=== PATIENT | female | born 1995 | race Caucasian/White ===

== ENCOUNTER 2017-02-25 03:51 | Emergency (ER) | payer SELFPAY ==
--- NOTE | 2017-02-25 05:04 | ER Document Report ---
ED GI/ - General Chief Complaint: Abdominal Pain Stated Complaint: ABDOMINAL PAIN Time Seen by Provider: 02/25/17 04:08 Notes: Patient is a 21-year-old female that comes emergency department for chief complaint of upper abdominal pain and nausea. She states that she had sharp pain prior to arrival, symptoms lasted about 20 minutes, symptoms resolved. She has not had any symptoms since then. She denies any current symptoms. 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 LMP within the past month. TRAVEL OUTSIDE OF THE [place] IN LAST 30 DAYS: No - Related Data Allergies/Adverse Reactions: Sulfa (Sulfonamide Antibiotics) Allergy (Mild, Verified 02/25/17 03:57) Past Medical History - General Information source: Patient - Social History Smoking Status: Never Smoker Chew tobacco use (# tins/day): No Drug Abuse: None Lives with: Family Family History: Reviewed & Not Pertinent Patient has suicidal ideation: No Patient has homicidal ideation: No - Medical History Medical History: Negative Renal/ Medical History: Denies: Hx Peritoneal Dialysis Surgical Hx: Negative - Immunizations Hx Diphtheria, Pertussis, Tetanus Vaccination: Yes Review of Systems - Review of Systems Constitutional: No symptoms reported EENT: No symptoms reported Cardiovascular: No symptoms reported Respiratory: No symptoms reported Gastrointestinal: See HPI Genitourinary: No symptoms reported Female Genitourinary: No symptoms reported Musculoskeletal: No symptoms reported Skin: No symptoms reported Hematologic/Lymphatic: No symptoms reported Neurological/Psychological: No symptoms reported Physical Exam - Vital signs Vitals: Temp Pulse Resp BP Pulse Ox 97.7 F 77 18 106/71 100 02/25/17 04:01 02/25/17 04:01 02/25/17 04:01 02/25/17 04:01 02/25/17 04:01 Interpretation: Normal - General General appearance: Appears well, Alert - HEENT Head: Normocephalic, Atraumatic Eyes: Normal Pupils: PERRL - Respiratory Respiratory status: No respiratory distress Chest status: Nontender Breath sounds: Normal Chest palpation: Normal - Cardiovascular Rhythm: Regular Heart sounds: Normal auscultation Murmur: No - Abdominal Inspection: Normal Distension: No distension Bowel sounds: Normal Tenderness: Nontender. No: Tender, Jamison's sign, Guarding Organomegaly: No organomegaly - Back Back: Normal, Nontender - Extremities General upper extremity: Normal inspection, Nontender, Normal color, Normal ROM , Normal temperature General lower extremity: Normal inspection, Nontender, Normal color, Normal ROM , Normal temperature, Normal weight bearing. No: Liang's sign - Neurological Neuro grossly intact: Yes Cognition: Normal Orientation: AAOx4 Azalea Coma Scale Eye Opening: Spontaneous Worthing Coma Scale Verbal: Oriented Azalea Coma Scale Motor: Obeys Commands Azalea Coma Scale Total: 15 Speech: Normal Motor strength normal: LUE, RUE, LLE, RLE Sensory: Normal - Psychological Associated symptoms: Normal affect, Normal mood - Skin Skin Temperature: Warm Skin Moisture: Dry Skin Color: Normal Course - Re-evaluation Re-evalutation: I saw patient with the same presentation 1 month ago. Labs were performed at that time although after discussion ultrasound was not performed. Patient does have a family history of gallbladder disease. After discussion patient requests that an ultrasound be performed, declines workup otherwise. Soft benign abdomen. No evidence of acute abdomen. Ultrasound showing gallstones without pericholecystic fluid, wall thickening, or dilation of ducts. Patient again asymptomatic on reevaluation. Provided with copies of her ultrasound, referred to surgery, after discussion gave Toradol but explained if she develops concerning worsening symptoms she needs to return the emergency department. Patient states satisfaction and agreement. - Vital Signs Vital signs: Temp Pulse Resp BP Pulse Ox 98.5 F 59 L 16 108/68 100 02/25/17 06:26 02/25/17 06:26 02/25/17 06:26 02/25/17 06:26 02/25/17 06:26 Discharge - Discharge Clinical Impression: Upper abdominal pain Cholelithiasis Qualifiers: Cholelithiasis location: gallbladder Cholecystitis presence: without cholecystitis Biliary obstruction: without biliary obstruction Qualified Code(s) : K80.20 - Calculus of gallbladder without cholecystitis without obstruction Condition: Stable Disposition: HOME, SELF-CARE Additional Instructions: Your ultrasound does show gallstone. Your gallbladder is likely the source of your pain both this time and last time. Avoid fatty foods, follow-up closely with the surgical clinic referral for additional management, take Toradol if needed however if symptoms worsen, you begin to vomit, you have a fever, or any other concerning symptoms develop return to the emergency department. Prescriptions: Ketorolac Tromethamine [Toradol 10 mg Tablet] 10 mg PO Q8HP PRN #24 tablet PRN Reason: Referrals: [facility] [Provider Group] - Follow up as needed
--- NOTE | 2017-02-25 06:20 | RADIOLOGY REPORT (SQ) ---
EXAM DESCRIPTION: U/S ABDOMEN LIMITED W/O DOP CLINICAL HISTORY: 21 years, Female, RUQ/epigastric pain, nausea COMPARISON: None. LIMITATIONS: None. FINDINGS: Pancreas, liver, vasculature, 0.5 cm gallstone, negative pericholecystic fluid, negative sonographic Jamison's test, no intra or extrahepatic ductal dilation, 0.4 cm diameter common duct, and 10.8 cm right kidney appear otherwise of normal size, shape, echotexture, and vascularity. No significant free fluid. IMPRESSION: No acute findings. Cholelithiasis. 2011 [employer]- All Rights Reserved
[2017-02-25 06:28] VITALS: BP 108/68
== END 2017-02-25 06:35 | disposition home or self-care (01) ==
LOC: ER 03:51
DX: K80.20 Calculus of gallbladder without cholecystitis without obstruction (principal); R10.10 Upper abdominal pain, unspecified; R11.0 Nausea
CPT/HCPCS: 76705; 99284

== ENCOUNTER 2018-07-16 08:30 | Emergency (ER) | payer OTHER ==
[2018-07-16] MEDS ORDERED: ONDANSETRON 4 MG TAB.RAPDIS PO ONE (09:50)
[2018-07-16 10:14] LABS: APPEARANCE,URINE CLOUDY; BILIRUBIN,URINE NEGATIVE (NEGATIVE); COLOR,URINE YELLOW; GLUCOSE, URINE NEGATIVE (NEGATIVE); KETONES,URINE 80 mg/dL (NEGATIVE); LEUKOCYTE ESTERASE,URINE TRACE (NEGATIVE); NITRITE,URINE NEGATIVE (NEGATIVE); PROTEIN,URINE NEGATIVE (NEGATIVE); URINE SPECIFIC GRAVITY 1.025; UROBILINOGEN,URINE NEGATIVE mg/dL (<2.0)
--- NOTE | 2018-07-16 10:47 | ER Document Report ---
ED General - General Chief Complaint: Nausea Stated Complaint: NAUSEA Time Seen by Provider: 07/16/18 09:30 Mode of Arrival: Ambulatory Information source: Patient Notes: Patient presents emergency department with complaints of abdominal pain with nausea for 3 days. Also complains her head has been hurting. She reports she vomited once yesterday denies fever diarrhea. Denies urinary symptoms. Denies vaginal discharge. Also reports she has a rash to her right shoulder twice this year. She applies eczema cream and it goes away. TRAVEL OUTSIDE OF THE [place] IN LAST 30 DAYS: No - HPI Onset: Other Onset/Duration: Persistent Pain Level: 1 Associated symptoms: Nausea, Vomiting Exacerbated by: Denies Relieved by: Denies Similar symptoms previously: No Recently seen / treated by doctor: No - Related Data Allergies/Adverse Reactions: Sulfa (Sulfonamide Antibiotics) Allergy (Mild, Verified 07/16/18 08:33) Past Medical History - General Information source: Patient Last Menstrual Period: 06/25/18 - Social History Smoking Status: Never Smoker Frequency of alcohol use: None Drug Abuse: None Family History: Reviewed & Not Pertinent Patient has suicidal ideation: No Patient has homicidal ideation: No Renal/ Medical History: Denies: Hx Peritoneal Dialysis Skin Medical History: Reports Hx Eczema Past Surgical History: Reports: Hx Cholecystectomy, Hx Orthopedic Surgery - Immunizations Hx Diphtheria, Pertussis, Tetanus Vaccination: Yes Review of Systems - Review of Systems Notes: Review HPI for review of systems., All other systems negative Physical Exam - Vital signs Vitals: Temp Pulse Resp BP Pulse Ox 98.1 F 69 17 114/73 100 07/16/18 08:48 07/16/18 08:48 07/16/18 08:48 07/16/18 08:48 07/16/18 08:48 - Notes Notes: PHYSICAL EXAMINATION: GENERAL: Well-appearing and in no acute distress HEAD: Atraumatic, normocephalic. EYES: Pupils equal round and reactive to light, extraocular movements intact, sclera anicteric, conjunctiva are normal. ENT: nares patent, oropharynx clear without exudates. Moist mucous membranes. NECK: Normal range of motion, supple without lymphadenopathy LUNGS: CTAB and equal. No wheezes rales or rhonchi. HEART: Regular rate and rhythm without murmurs ABDOMEN: Soft, no tenderness. No guarding, no rebound EXTREMITIES: Normal range of motion, no pitting edema. No cyanosis. NEUROLOGICAL: Cranial nerves grossly intact. Normal sensory/motor exams. PSYCH: Normal mood, normal affect. SKIN: Warm, Dry, normal turgor, no rashes or lesions noted Course - Re-evaluation Re-evalutation: 07/16/18 Labs unremarkable. Patient informed of labs provided with a prescription for antinausea medicine. Instructed to follow-up with a primary care provider for further needs and recheck. She verbalized understanding. Dictation of this chart was performed using voice recognition software; therefore, there may be some unintended grammatical errors. - Vital Signs Vital signs: Temp Pulse Resp BP Pulse Ox 97.9 F 59 L 18 115/75 100 07/16/18 11:46 07/16/18 11:46 07/16/18 11:46 07/16/18 11:46 07/16/18 11:46 - Laboratory Result Diagrams: 07/16/18 10:38 07/16/18 10:38 Laboratory results interpreted by me: 07/16/18 10:00 Urine Ketones 80 H Ur Leukocyte Esterase TRACE H Discharge - Discharge Clinical Impression: Nausea Condition: Stable Disposition: HOME, SELF-CARE Instructions: Antinausea Medication ([facility]), Program Manager Transportation, Family Physicians / Practices, Nausea or Vomiting, Nonspecific ([facility]) Additional Instructions: *You have been evaluated for nausea Your labs today were unremarkable *Take medication as prescribed for nausea *Follow up with a primary care provider within 5 days for recheck *Return to ED for worsening condition, changes, needs Prescriptions: Ondansetron [Zofran Odt 4 mg Tablet] 1 - 2 tab PO Q4H #10 tab.mel
[2018-07-16 10:56] LABS: ABSOLUTE EOSINOPHILS # (AUTO) 0.1 10^3/uL (0.0-0.6); ABSOLUTE LYMPHOCYTES (AUTO) 1.2 10^3/uL (0.5-4.7); ABSOLUTE MONOCYTES (AUTO) 0.3 10^3/uL (0.1-1.4); ABSOLUTE NEUT (AUTO) 2.5 10^3/uL (1.7-8.2); BASOPHILS % (AUTO) 0.4 % (0-2); EOSINOPHILS % (AUTO) 3.2 % (0-6); HEMATOCRIT 38.3 % (36.0-47.0); MEAN CORPUSCULAR HEMOGLOBIN 28.2 pg (27.0-33.4); MEAN CORPUSCULAR HGB CONC 33.8 g/dL (32.0-36.0); MEAN CORPUSCULAR VOLUME 83 fl (80-97); MONOCYTES % (AUTO) 6.4 % (3-13); PLATELET COUNT 254 10^3/uL (150-450); RED BLOOD COUNT 4.59 10^6/uL (3.72-5.28); RED CELL DISTRIBUTION WIDTH 13.3 % (11.5-14.0); TOTAL CELLS COUNTED % (AUTO) 100 %; WHITE BLOOD COUNT 4.1 10^3/uL (4.0-10.5)
[2018-07-16 11:20] LABS: ALANINE AMINOTRANSFERASE 21 U/L (9-52); ALBUMIN 3.9 g/dL (3.5-5.0); ALKALINE PHOSPHATASE 64 U/L (38-126); ANION GAP 9 (5-19); ASPARTATE AMINO TRANSFERASE 21 U/L (14-36); BILIRUBIN,DIRECT 0.1 mg/dL (0.0-0.4); BILIRUBIN,TOTAL 0.9 mg/dL (0.2-1.3); BLOOD UREA NITROGEN 10 mg/dL (7-20); CALCIUM 9.4 mg/dL (8.4-10.2); CARBON DIOXIDE 25 mmol/L (22-30); CHLORIDE 106 mmol/L (98-107); GLUCOSE 86 mg/dL (75-110); POTASSIUM 4.7 mmol/L (3.6-5.0); TOTAL PROTEIN 7.3 g/dL (6.3-8.2)
[2018-07-16 11:47] VITALS: BP 115/75
== END 2018-07-16 11:55 | disposition home or self-care (01) ==
LOC: ER 08:30
DX: R11.0 Nausea (principal); R10.9 Unspecified abdominal pain; Z90.49 Acquired absence of other specified parts of digestive tract; Z88.2 Allergy status to sulfonamides
CPT/HCPCS: 99283; 36415; 85025; 81025; 80053; 81001; S0119

== ENCOUNTER 2018-08-21 08:56 | Emergency (ER) | payer SELFPAY ==
[2018-08-21 09:16] VITALS: BP 128/75
[2018-08-21] MEDS ORDERED: PROMETHAZINE HCL 25 MG TABLET PO ONE (09:57)
[2018-08-21] MEDS ORDERED: FAMOTIDINE 20 MG TABLET PO ONE (09:58)
--- NOTE | 2018-08-21 10:13 | ER Document Report ---
ED General - General Chief Complaint: Nausea Stated Complaint: NAUSEA/WEAKNESS Time Seen by Provider: 08/21/18 09:57 Primary Care Provider: [facility] [Provider Group] - Follow up as needed Notes: Patient is a 22-year-old female presents to the mother chief complaint of nausea and feeling generally weak. Patient states she was driving in her car this morning when both her hands started shaking. Patient states this lasted about 1 minute. Patient states that at that time she also developed nausea and feeling hot all over. Patient states a similar episode happened in the past about 1 month ago in which she was seen in the emergency department for nausea she reports that her last menstrual period was July 31 and denies current . Patient states she has had a normal appetite and denies recent cough, cold, sore throat, runny nose or fevers. Patient states she does have occasional acid reflux but is not induced with certain foods. Patient is not on medications for her acid reflux. Patient states this morning she did have a little bit of a odor to her urine but denies other urinary symptoms such as burning, frequency, hesitancy. Patient denies any dizziness or headache. TRAVEL OUTSIDE OF THE [place] IN LAST 30 DAYS: No - Related Data Allergies/Adverse Reactions: Sulfa (Sulfonamide Antibiotics) Allergy (Mild, Verified 08/21/18 09:04) Past Medical History - General Information source: Patient - Social History Smoking Status: Never Smoker Chew tobacco use (# tins/day): No Frequency of alcohol use: Occasional Drug Abuse: None Lives with: Spouse/Significant other Family History: Reviewed & Not Pertinent Patient has suicidal ideation: No Patient has homicidal ideation: No - Past Medical History Cardiac Medical History: Reports: None Pulmonary Medical History: Reports: None EENT Medical History: Reports: None Neurological Medical History: Reports: None Endocrine Medical History: Reports: None Renal/ Medical History: Reports: None. Denies: Hx Peritoneal Dialysis Malignancy Medical History: Reports: None GI Medical History: Reports: None Musculoskeletal Medical History: Reports None Skin Medical History: Reports Hx Eczema Psychiatric Medical History: Reports: None Traumatic Medical History: Reports: None Infectious Medical History: Reports: None Past Surgical History: Reports: Hx Cholecystectomy, Hx Orthopedic Surgery - Immunizations Hx Diphtheria, Pertussis, Tetanus Vaccination: Yes Review of Systems - Review of Systems Constitutional: See HPI EENT: No symptoms reported Cardiovascular: No symptoms reported Respiratory: No symptoms reported Gastrointestinal: See HPI Genitourinary: See HPI Female Genitourinary: No symptoms reported Musculoskeletal: No symptoms reported Skin: No symptoms reported Hematologic/Lymphatic: No symptoms reported Neurological/Psychological: No symptoms reported Physical Exam - Vital signs Vitals: Temp Pulse Resp BP Pulse Ox 98.7 F 67 18 128/75 H 97 08/21/18 09:15 08/21/18 09:15 08/21/18 09:15 08/21/18 09:15 08/21/18 09:15 Interpretation: Normal - Notes Notes: GENERAL: Well-appearing, well-nourished and in no acute distress. HEAD: Atraumatic, normocephalic. EYES: Pupils equal round and reactive to light, extraocular movements intact, sclera anicteric, conjunctiva are normal. ENT: TMs normal, nares patent, oropharynx clear without exudates. Moist mucous membranes. NECK: Normal range of motion, supple without lymphadenopathy or JVD. LUNGS: Breath sounds clear to auscultation bilaterally and equal. No wheezes rales or rhonchi. HEART: Regular rate and rhythm without murmurs, rubs or gallops. ABDOMEN: Soft, nontender, normoactive bowel sounds. No guarding, no rebound. No masses appreciated. BACK: No cervical, thoracic, lumbar midline tenderness. No saddle anesthesia, normal distal neurovascular exam. GENITOURINARY: Deferred. EXTREMITIES: Normal range of motion, no pitting or edema. No clubbing or cyanosis. NEUROLOGICAL: Cranial nerves II through XII grossly intact. Normal speech, normal gait. PSYCH: Normal mood, normal affect. SKIN: Warm, Dry, normal turgor, no rashes or lesions noted. Course - Re-evaluation Re-evalutation: 08/21/18 10:12 I will obtain a urinalysis, urine and give the patient Pepcid for possible acid reflux that is not controlled and anti-nausea medication. She is sitting upright in chair in no acute distress and is nontoxic-appearing. 08/21/18 Plan reevaluation patient is sitting upright in chair with significant other at the bedside. Patient states that her nausea has slightly improved. Patient is in no acute distress. Patient did have a trace amount of leuks in her urine and at this time I do not believe she has a urinary tract infection. I informed patient to increase fluids prescribed Pepcid to take as needed for the acid reflux that she reports having intermittently. Patient states that sometimes she feels like her sugar is low. Patient denies a history of diagnosed hypoglycemia or hyperglycemia. I did inform patient eat small frequent meals throughout the day to help with this. I did refer the patient to the [facility] as she does not have health insurance. Place patient on strict report return precautions. - Vital Signs Vital signs: Temp Pulse Resp BP Pulse Ox 98.7 F 67 18 128/75 H 97 08/21/18 09:15 08/21/18 09:15 08/21/18 09:15 08/21/18 09:15 08/21/18 09:15 - Laboratory Laboratory results interpreted by me: 08/21/18 10:10 Ur Leukocyte Esterase TRACE H Discharge - Discharge Clinical Impression: Nausea, Weakness Condition: Stable Disposition: HOME, SELF-CARE Additional Instructions: Today you were seen in the emergency department for nausea and generalized weakness. We did obtain a urine specimen which was negative for and urinary tract infection. Continue to take your anti-nausea medicine at home as needed. Prescribe you Pepcid, this is an antacid to take for your reflux. This may help with your nausea. Please avoid ibuprofen, aspirin, Aleve or any other NSAIDs as this may upset your stomach caused the nausea to worsen. Please follow-up with the [facility] to establish primary care. Please return to the emergency department for worsening of symptoms to include chest pain, shortness of breath, dizziness, passing out or any other concerning signs or symptoms. Eat small frequent meals throughout the day. Nausea or Vomiting, Nonspecific Vomiting (or nausea without vomiting) can be caused by many different problems. Of course, it can mean that something's wrong with the stomach, such as "stomach flu," ulcers, or inflammation. But it can also be a symptom of a problem that has nothing to do with the stomach or intestines. Vomiting is common with severe headaches, earaches, and tonsillitis. We see it with pneumonia or heart attacks. Drugs can cause nausea. Many abdominal problems cause vomiting; for example, gallstones, kidney stones, pancreatitis, and intestinal obstruction (blocked bowels). In most cases, curing the vomiting depends on fixing the problem that c aused it. For temporary relief, we may use an anti-nausea medicine. For home use, we can prescribe suppositories, chewable pills, pills that dissolve in the mouth, or liquid anti-nausea drugs. If the vomiting seems to be caused by a problem in the stomach, acid-suppressing drugs may be prescribed as well. It's important to avoid dehydration. Sip clear liquids. Take increasing amounts of fluid over the first 24 hours. Then start small amounts of bland foods (such as dry toast, applesauce, mashed potato). Avoid aspirin, tobacco, and alcohol. Gradually resume your usual diet. If the vomiting worsens, if the problem that's making you vomit worsens, or if there's evidence of bleeding in the stomach (such as black, tarry stool, bloody or black vomit, or lightheadedness), you should return immediately. Call your doctor if you aren't improved in 24 to 36 hours. Prescriptions: Famotidine [Pepcid 20 mg Tablet] 20 mg PO DAILY #30 tablet Forms: Return to Work Referrals: [facility] [Provider Group] - Follow up as needed
[2018-08-21 10:36] LABS: APPEARANCE,URINE CLOUDY; BILIRUBIN,URINE NEGATIVE (NEGATIVE); COLOR,URINE YELLOW; GLUCOSE, URINE NEGATIVE (NEGATIVE); KETONES,URINE NEGATIVE (NEGATIVE); LEUKOCYTE ESTERASE,URINE TRACE (NEGATIVE); NITRITE,URINE NEGATIVE (NEGATIVE); PROTEIN,URINE NEGATIVE (NEGATIVE); URINE SPECIFIC GRAVITY 1.029; UROBILINOGEN,URINE NEGATIVE mg/dL (<2.0)
== END 2018-08-21 11:22 | disposition home or self-care (01) ==
LOC: ER 08:56
DX: R11.0 Nausea (principal); R53.1 Weakness
CPT/HCPCS: 81001; 81025; 99283

== ENCOUNTER 2018-12-07 19:11 | Emergency (ER) | payer OTHER ==
[2018-12-07 19:34] VITALS: BP 124/81
[2018-12-07] MEDS ORDERED: GUAIFENESIN 600 MG TABLET.SA PO ONE (19:42)
[2018-12-07] MEDS ORDERED: LORATADINE 10 MG TABLET PO ONE (19:42)
[2018-12-07] MEDS ORDERED: IBUPROFEN 600 MG TABLET PO ONE (19:42)
[2018-12-07] MEDS ORDERED: PSEUDOEPHEDRINE HCL 30 MG TABLET PO ONE (19:42)
--- NOTE | 2018-12-07 19:42 | ER Document Report ---
ED Medical Screen (RME) - General Chief Complaint: Nausea Stated Complaint: NAUSEA/CONGESTION Time Seen by Provider: 12/07/18 19:34 Mode of Arrival: Ambulatory Information source: Patient Notes: For 23-year-old female presents to ED for complaint of nausea and facial sinus pain and pressure. She states she did have a runny nose but it decreased when she used a Mari pot but the pain and pressure increased. She states she is also been feeling tired and fatigued. She states she has been nausea but no vomiting. Last menstrual period was about 2 weeks ago denies any cough or congestion. Only medical history is gallbladder removal. She states she drinks maybe once a year does not smoke or use any kind of drugs. 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 TRAVEL OUTSIDE OF THE [place] IN LAST 30 DAYS: No - HPI Onset: Other - 4 days Onset/Duration: Gradual Quality of pain: Achy Severity: Mild Pain Level: 1 Associated Symptoms: Cough (nonproductive), Nausea, Rhinorrhea, Sinus pain/drainage Exacerbated by: Denies Relieved by: Denies Similar symptoms previously: Yes Recently seen / treated by doctor: No - Related Data Allergies/Adverse Reactions: Sulfa (Sulfonamide Antibiotics) Allergy (Mild, Verified 08/21/18 09:04) Past Medical History - General Information source: Patient - Social History Cigarette use (# per day): No Frequency of alcohol use: None Drug Abuse: None Lives with: Family Family history: Reviewed & Not Pertinent - Past Medical History Cardiac Medical History: Reports: None Pulmonary Medical History: Reports: None EENT Medical History: Reports: None Neurological Medical History: Reports: None Endocrine Medical History: Reports: None Renal/ Medical History: Reports: None Malignancy Medical History: Reports: None GI Medical History: Reports: None Musculoskeltal Medical History: Reports None Skin Medical History: Reports Hx Eczema Psychiatric Medical History: Reports: None Traumatic Medical History: Reports: None Infectious Medical History: Reports: None Past Surgical History: Reports: Hx Cholecystectomy, Hx Orthopedic Surgery - Immunizations Hx Diphtheria, Pertussis, Tetanus Vaccination: Yes Review of Systems - Review of Systems Constitutional: No symptoms reported EENT: Nose discharge, Sinus discharge Cardiovascular: No symptoms reported Respiratory: Cough Gastrointestinal: No symptoms reported Genitourinary: No symptoms reported Female Genitourinary: No symptoms reported Musculoskeletal: No symptoms reported Skin: No symptoms reported Hematologic/Lymphatic: No symptoms reported Neurological/Psychological: No symptoms reported -: Yes All other systems reviewed and negative Physical Exam - Vital signs Vitals: Temp Pulse Resp BP Pulse Ox 98.6 F 76 16 124/81 99 12/07/18 19:33 12/07/18 19:33 12/07/18 19:33 12/07/18 19:33 12/07/18 19:33 Interpretation: Normal - General General appearance: Appears well, Alert - HEENT Head: Normocephalic, Atraumatic Eyes: Normal Pupils: PERRL - Respiratory Respiratory status: No respiratory distress Chest status: Nontender Breath sounds: Normal Chest palpation: Normal - Cardiovascular Rhythm: Regular Heart sounds: Normal auscultation Murmur: No - Abdominal Inspection: Normal Distension: No distension Bowel sounds: Normal Tenderness: Nontender Organomegaly: No organomegaly - Back Back: Normal, Nontender - Extremities General upper extremity: Normal inspection, Nontender, Normal color, Normal ROM, Normal temperature General lower extremity: Normal inspection, Nontender, Normal color, Normal ROM, Normal temperature, Normal weight bearing. No: Liang's sign - Neurological Neuro grossly intact: Yes Cognition: Normal Orientation: AAOx4 [place] Coma Scale Eye Opening: Spontaneous [place] Coma Scale Verbal: Oriented [place] Coma Scale Motor: Obeys Commands [place] Coma Scale Total: 15 Speech: Normal Motor strength normal: LUE, RUE, LLE, RLE Sensory: Normal - Psychological Associated symptoms: Normal affect, Normal mood - Skin Skin Temperature: Warm Skin Moisture: Dry Skin Color: Normal Course - Re-evaluation Re-evalutation: 12/07/18 19:48 After performing a Medical Screening Examination, I estimate there is LOW risk for ACUTE CORONARY SYNDROME, RESPIRATORY FAILURE, SEPSIS OR MENINGITIS, thus I consider the discharge disposition reasonable. I have reevaluated this patient multiple times and no significant life threatening changes are noted. The patient and I have discussed the diagnosis and risks, and we agree with discharging home with close follow-up. We also discussed returning to the Emergency Department immediately if new or worsening symptoms occur. We have discussed the symptoms which are most concerning (e.g., changing or worsening pain, trouble swallowing or breathing, neck stiffness, fever) that necessitate immediate return. - Vital Signs Vital signs: Temp Pulse Resp BP Pulse Ox 98.6 F 76 16 124/81 99 12/07/18 19:33 12/07/18 19:33 12/07/18 19:33 12/07/18 19:33 12/07/18 19:33 Doctor's Discharge - Discharge Clinical Impression: URI (upper respiratory infection) Qualifiers: URI type: unspecified viral URI Qualified Code(s): J06.9 - Acute upper respiratory infection, unspecified Condition: Stable Disposition: HOME, SELF-CARE Instructions: Family Physicians / Practices Additional Instructions: UPPER RESPIRATORY ILLNESS: You have a viral infection of the respiratory passages -- a "cold." This common infection causes nasal congestion, drainage, and often sore throat and cough. It is highly contagious. The disease usually lasts about 10 to 14 days. There is no "cure" for the viral infection -- it must run its course. If there is a complication, such as bacterial infection in the nose, sinuses, middl e ear, or bronchial tubes, antibiotics may be required. The antibiotics won't affect the virus. Drink plenty of fluids. A humidifier may help. An expectorant medication or decongestant may make you more comfortable. Use acetaminophen or ibuprofen for fever or aches. See the doctor if fever persists over two days, if there is any significant worsening of your symptoms, or if you simply fail to improve as expected. DECONGESTANT MEDICATION: A decongestant medicine has been suggested. Often this medicine is combined in the same tablet with an antihistamine or expectorant. This type of medicine is helpful in treating a bad cold or sinus condition, as well as in treatment of the nasal congestion of hay fever. It is not of much benefit for lung infections. Decongestant medicines are related to stimulants. They can cause an increase in blood pressure and heart rate. Persons with heart disease and high blood pressure should not take decongestants without discussing this with the physician. If you develop palpitations, chest pain, headache, or tremors, stop the medicine and consult your physician. COUGH-SUPPRESSANT & EXPECTORANT MEDICATION: You are to use a cough medication as needed for relief of symptoms. This medicine is a combination of an expectorant (to make the mucous thinner and more easily "coughed up") and a cough suppressant (to reduce the frequency of coughing). The cough-suppressant medicine is related to narcotics. You may experience mild nausea and sleepiness. Some patients who are very sensitive to narcotics may have stomach pain from this medicine. Taking the medicine with food reduces these side effects. Do not drive or work with machinery until you know how this medicine affects you. The expectorant should have no side effects. Iodine-containing expectorants (such as organidin) should not be taken by persons with active thyroid disease unless approved by your doctor. Call the doctor if you develop shortness of breath, hives, rash, itching, lightheadedness, or severe nausea and vomiting. USE OF ACETAMINOPHEN (Tylenol): Acetaminophen may be taken for pain relief or fever control. It's much safer than aspirin, offering a wider range of "safe" dosages. It is safe during . Some brand names are Tylenol, Panadol, Datril, Anacin 3, Tempra, and Liquiprin. Acetaminophen can be repeated every four hours. The following are maximum recommended dosages: >89 pounds or adults 650 mg to 900 mg Acetaminophen can be repeated every four hours. Maximum dose not to exceed 4000 mg a day. You have been treated with Claritin 10 mg Sudafed 30 mg Mucinex 600 mg and ibuprofen 600 mg in the emergency room these are all wjri-rkq-rshyavv medications that she can get at the drugstore. You can also use Flonase which is filz-kby-[id number] use 2 sprays each nostril can also use saline spray. He can also use salt and soda gargles which will help with the drainage going on the back of your throat. This will also help to prevent a sore throat. Salt and soda solution 1 quart of water 1 tablespoon of salt 1 teaspoon of baking soda Mixed 3 ingredients together and boil for 1 minute Placed in a covered quart jar Use 1/2 ounce of cold solution to gargle 3 times a day FOLLOW-UP CARE: If you have been referred to a physician for follow-up care, call the physicians office for an appointment as you were instructed or within the next two days. If you experience worsening or a significant change in your symptoms, notify the physician immediately or return to the Emergency Department at any time for re-evaluation. Forms: Return to Work
== END 2018-12-07 20:00 | disposition home or self-care (01) ==
LOC: ER 19:11
DX: J06.9 Acute upper respiratory infection, unspecified (principal); B97.89 Other viral agents as the cause of diseases classified elsewhere; R11.0 Nausea; J34.89 Other specified disorders of nose and nasal sinuses; R53.83 Other fatigue; R05 Cough; Z88.2 Allergy status to sulfonamides; R09.89 Other specified symptoms and signs involving the circulatory and respiratory systems
CPT/HCPCS: 99283

== ENCOUNTER → 2019-05-26 | Outpatient (CLI) | payer OTHER ==
[2019-05-26 15:45] LABS: ABSOLUTE EOSINOPHILS # (AUTO) 0.2 10^3/uL (0.0-0.6); ABSOLUTE LYMPHOCYTES (AUTO) 1.3 10^3/uL (0.5-4.7); ABSOLUTE MONOCYTES (AUTO) 0.3 10^3/uL (0.1-1.4); ABSOLUTE NEUT (AUTO) 3.8 10^3/uL (1.7-8.2); BASOPHILS % (AUTO) 0.3 % (0-2); EOSINOPHILS % (AUTO) 3.3 % (0-6); HEMATOCRIT 37.4 % (36.0-47.0); HEMOGLOBIN 12.8 g/dL (12.0-15.5); MEAN CORPUSCULAR HEMOGLOBIN 27.2 pg (27.0-33.4); MEAN CORPUSCULAR HGB CONC 34.1 g/dL (32.0-36.0); MEAN CORPUSCULAR VOLUME 80 fl (80-97); MONOCYTES % (AUTO) 5.2 % (3-13); PLATELET COUNT 319 10^3/uL (150-450); RED BLOOD COUNT 4.69 10^6/uL (3.72-5.28); RED CELL DISTRIBUTION WIDTH 14.7 % (11.5-14.0); SEGMENTED NEUTROPHILS % (AUTO) 68.2 % (42-78); TOTAL CELLS COUNTED % (AUTO) 100 %; WHITE BLOOD COUNT 5.6 10^3/uL (4.0-10.5)
[2019-05-26 16:03] LABS: ALBUMIN 4.4 g/dL (3.5-5.0); ALKALINE PHOSPHATASE 79 U/L (38-126); ANION GAP 8 (5-19); ASPARTATE AMINO TRANSFERASE 22 U/L (14-36); BILIRUBIN,TOTAL 0.6 mg/dL (0.2-1.3); BLOOD UREA NITROGEN 13 mg/dL (7-20); CALCIUM 9.3 mg/dL (8.4-10.2); CARBON DIOXIDE 27 mmol/L (22-30); CHLORIDE 103 mmol/L (98-107); GLUCOSE 71 mg/dL (75-110); POTASSIUM 4.6 mmol/L (3.6-5.0)
== END ==
LOC: OD 14:47
PROVIDERS: ATTEND Physician Assistant
DX: R11.0 Nausea (principal)
CPT/HCPCS: 36415; 80053; 83690; 84703; 85025

== ENCOUNTER 2019-08-26 05:54 | Emergency (ER) | payer OTHER ==
[2019-08-26] MEDS ORDERED: NORMAL SALINE 1000 ML 1,000 ML IV ONE (07:14)
[2019-08-26] MEDS ORDERED: DIPHENHYDRAMINE HCL 50 MG/ML VIAL IV ONE (07:14)
[2019-08-26] MEDS ORDERED: KETOROLAC TROMETHAMINE INJ/PF 30 MG/1 ML SDV IV ONE (07:14)
[2019-08-26] MEDS ORDERED: PROCHLORPERAZINE EDISYLATE INJ 10 MG/2 ML VIAL IV ONE (07:15)
--- NOTE | 2019-08-26 07:45 | ER Document Report ---
Entered by SHIRA PAYAN SCRIBE 08/26/19 0722 Acting as scribe for:ASHLEY MARTÍNEZ MD ED General - General Chief Complaint: Headache Stated Complaint: NAUSEA,HEADACHE Time Seen by Provider: 08/26/19 06:37 Mode of Arrival: Ambulatory Information source: Patient Notes: This 23-year-old female patient presents to the emergency department today with complaints of nausea for one week without vomiting along with a headache for two days. Patient states she does not frequently get headaches. Patient is currently on her menstrual cycle and uses NuvaRing control. Patient denies vomiting, fevers, cough, congestion, or sore throat. TRAVEL OUTSIDE OF THE [place] IN LAST 30 DAYS: No - Related Data Allergies/Adverse Reactions: Sulfa (Sulfonamide Antibiotics) Allergy (Mild, Verified 08/21/18 09:04) Home Medications: Setraline Past Medical History - General Information source: Patient - Social History Smoking Status: Never Smoker Cigarette use (# per day): No Chew tobacco use (# tins/day): No Frequency of alcohol use: Rare Drug Abuse: None Occupation: [employer] Lives with: Family Family History: Reviewed & Not Pertinent - Medical History Medical History: Negative Skin Medical History: Reports Hx Eczema Psychiatric Medical History: Reports: Hx Depression Past Surgical History: Reports: Hx Cholecystectomy, Hx Orthopedic Surgery - FB removed from 3rd finger - Immunizations Hx Diphtheria, Pertussis, Tetanus Vaccination: Yes Review of Systems - Review of Systems Constitutional: denies: Fever EENT: denies: Nose congestion, Throat pain Cardiovascular: No symptoms reported Respiratory: denies: Cough Gastrointestinal: See HPI, Nausea. denies: Vomiting Genitourinary: No symptoms reported Female Genitourinary: No symptoms reported Musculoskeletal: No symptoms reported Skin: No symptoms reported Hematologic/Lymphatic: No symptoms reported Neurological/Psychological: See HPI, Headaches -: Yes All other systems reviewed and negative Physical Exam - Vital signs Vitals: Temp Pulse Resp BP Pulse Ox 98.2 F 71 16 116/77 97 08/26/19 06:16 08/26/19 06:16 08/26/19 06:16 08/26/19 06:16 08/26/19 06:16 - Notes Notes: Physical Exam: General: Alert, appears well. HEENT: Normocephalic. Atraumatic. PERRL. Extraocular movements intact. Oroph arynx clear. Left temporal muscles are tender with palpation, left frontal sinus tenderness to percussion. Neck: Supple. Posterior cervical and trapezius muscles are tender with palpation, right greater than left. Respiratory: No respiratory distress. Clear and equal breath sounds bilaterally. Cardiovascular: Regular rate and rhythm. Abdominal: Normal Inspection. Non-tender. No distension. Normal Bowel Sounds. Back: No gross abnormalities. Extremities: Moves all four extremities. Upper extremities: Normal inspection. Normal ROM. Lower extremities: Normal inspection. No edema. Normal ROM. Neurological: Normal cognition. AAOx4. Normal speech. Psychological: Normal affect. Normal Mood. Skin: Warm. Dry. Normal color. Course - Vital Signs Vital signs: Temp Pulse Resp BP Pulse Ox 98.4 F 71 16 116/77 97 08/26/19 07:07 08/26/19 06:16 08/26/19 06:16 08/26/19 06:16 08/26/19 06:16 - Laboratory Result Diagrams: 08/26/19 08:04 08/26/19 08:04 Laboratory results interpreted by me: 08/26/19 08/26/19 08/26/19 08:04 08:04 08:44 Hgb 11.9 L MCH 26.1 L RDW 15.0 H Anion Gap 4 L Urine Ascorbic Acid 40 H Discharge - Discharge Clinical Impression: Nausea Tension type headache Qualifiers: Headache chronicity pattern: acute headache Intractability: not intractable Qualified Code(s): G44.209 - Tension-type headache, unspecified, not intractable Condition: Stable Disposition: HOME, SELF-CARE Additional Instructions: Tension Headache Your problem has been diagnosed as muscle tension headache. This very common type of headache occurs because of tightness in the muscles of the head and neck. The cause may be neck or jaw joint problems, but most commonly the cause is emotional stress. The headache may last hours or days. The treatment of uncomplicated tension headaches is rest and pain medication. Often, the newer antiinflammatory pain medications are prescribed, as these also decrease the irritability of the painful tissues. Muscle relaxers, cold packs, or warm packs are sometimes helpful. Anti-anxiety medication or narcotics are sometimes needed temporarily, but are best avoided in the long run. Your doctor has evaluated your headache problem, and finds no evidence of a serious health problem as a cause for the headache. If your headache becomes more severe, or if new symptoms develop (such as fever, stiff neck, vomiting, or decreasing alertness) you should be re-examined by the physician. Nausea or Vomiting, Nonspecific Vomiting (or nausea without vomiting) can be caused by many different problems. Of course, it can mean that something's wrong with the stomach, such as "stomach flu," ulcers, or inflammation. But it can also be a symptom of a problem that has nothing to do with the stomach or intestines. Vomiting is comm on with severe headaches, earaches, and tonsillitis. We see it with pneumonia or heart attacks. Drugs can cause nausea. Many abdominal problems cause vomiting; for example, gallstones, kidney stones, pancreatitis, and intestinal obstruction (blocked bowels). In most cases, curing the vomiting depends on fixing the problem that caused it. For temporary relief, we may use an anti-nausea medicine. For home use, we can prescribe suppositories, chewable pills, pills that dissolve in the mouth, or liquid anti-nausea drugs. If the vomiting seems to be caused by a problem in the stomach, acid-suppressing drugs may be prescribed as well. It's important to avoid dehydration. Sip clear liquids. Take increasing amounts of fluid over the first 24 hours. Then start small amounts of bland foods (such as dry toast, applesauce, mashed potato). Avoid aspirin, tobacco, and alcohol. Gradually resume your usual diet. If the vomiting worsens, if the problem that's making you vomit worsens, or if there's evidence of bleeding in the stomach (such as black, tarry stool, bloody or black vomit, or lightheadedness), you should return immediately. Call your doctor if you aren't improved in 24 to 36 hours. Take medications as prescribed for nausea and headache. Drink plenty of fluids and get plenty of rest. Follow-up with a local primary care provider if not improving. RETURN TO THE EMERGENCY ROOM IF ANY NEW OR WORSENING SYMPTOMS. Prescriptions: Butalb/Acetaminophen/Caffeine [Fioricet (50-325-40 mg) Tablet] 1 tab PO Q4H PRN #20 tab PRN Reason: For Headache Ondansetron [Zofran Odt 4 mg Tablet] 1 - 2 tab PO Q4H PRN #14 tab.rapdis PRN Reason: Forms: Return to Work I personally performed the services described in the documentation, reviewed and edited the documentation which was dictated to the scribe in my presence, and it accurately records my words and actions.
[2019-08-26 08:19] LABS: ABSOLUTE EOSINOPHILS # (AUTO) 0.2 10^3/uL (0.0-0.6); ABSOLUTE LYMPHOCYTES (AUTO) 1.1 10^3/uL (0.5-4.7); ABSOLUTE MONOCYTES (AUTO) 0.3 10^3/uL (0.1-1.4); ABSOLUTE NEUT (AUTO) 4.4 10^3/uL (1.7-8.2); BASOPHILS % (AUTO) 0.5 % (0-2); EOSINOPHILS % (AUTO) 3.6 % (0-6); HEMATOCRIT 36.4 % (36.0-47.0); HEMOGLOBIN 11.9 g/dL (12.0-15.5); LYMPHOCYTES % (AUTO) 17.4 % (13-45); MEAN CORPUSCULAR HEMOGLOBIN 26.1 pg (27.0-33.4); MEAN CORPUSCULAR HGB CONC 32.6 g/dL (32.0-36.0); MEAN CORPUSCULAR VOLUME 80 fl (80-97); MONOCYTES % (AUTO) 5.3 % (3-13); PLATELET COUNT 287 10^3/uL (150-450); RED BLOOD COUNT 4.54 10^6/uL (3.72-5.28); SEGMENTED NEUTROPHILS % (AUTO) 73.2 % (42-78); TOTAL CELLS COUNTED % (AUTO) 100 %; WHITE BLOOD COUNT 6.1 10^3/uL (4.0-10.5)
[2019-08-26 08:49] LABS: ALBUMIN 3.8 g/dL (3.5-5.0); ALKALINE PHOSPHATASE 93 U/L (38-126); ASPARTATE AMINO TRANSFERASE 19 U/L (14-36); BILIRUBIN,TOTAL 0.5 mg/dL (0.2-1.3); BLOOD UREA NITROGEN 10 mg/dL (7-20); CALCIUM 8.6 mg/dL (8.4-10.2); CHLORIDE 107 mmol/L (98-107); GLUCOSE 84 mg/dL (75-110); POTASSIUM 4.1 mmol/L (3.6-5.0); TOTAL PROTEIN 6.9 g/dL (6.3-8.2)
[2019-08-26 08:55] LABS: CARBON DIOXIDE 26 mmol/L (22-30)
[2019-08-26 08:56] LABS: ANION GAP 4 (5-19)
[2019-08-26 09:09] LABS: APPEARANCE,URINE SLIGHTLY-CLOUDY; BILIRUBIN,URINE NEGATIVE (NEGATIVE); COLOR,URINE YELLOW; GLUCOSE, URINE NEGATIVE (NEGATIVE); KETONES,URINE NEGATIVE (NEGATIVE); LEUKOCYTE ESTERASE,URINE NEGATIVE (NEGATIVE); NITRITE,URINE NEGATIVE (NEGATIVE); PROTEIN,URINE NEGATIVE (NEGATIVE); URINE SPECIFIC GRAVITY 1.018; UROBILINOGEN,URINE NEGATIVE mg/dL (<2.0)
[2019-08-26 09:56] VITALS: BP 107/78
== END 2019-08-26 09:56 | disposition home or self-care (01) ==
LOC: ER 05:54
DX: G44.209 Tension-type headache, unspecified, not intractable (principal); R11.0 Nausea; M54.6 Pain in thoracic spine; M54.2 Cervicalgia; Z88.2 Allergy status to sulfonamides; Z79.899 Other long term (current) drug therapy
CPT/HCPCS: 99284; 96361; 96374; 96375; 36415; 84703; 85025; 80053; 81001; J1200; J1885; J0780; J7030

== ENCOUNTER 2019-09-09 21:10 | Emergency (ER) | payer OTHER ==
--- NOTE | 2019-09-10 00:18 | ER Document Report ---
HPI - HPI Time Seen by Provider: 09/09/19 23:22 Pain Level: 2 Context: Patient is a 23-year-old female that comes emergency department with 2 complaints. First complaint is tightness in her upper back, neck on the right side, and frequent headaches that come up behind her ear and wraparound her forehead. She was seen almost a week ago for this, prescribed Fioricet, states that she is still getting frequent headaches. She works nights at a prison. She denies head or neck injury, focal numbness or weakness. She states sometimes her headache will get severe and she will get blurry vision but she denies visual changes currently, denies nausea or vomiting, denies fever or chills. Second complaint is pressure and tenderness in her sinuses on both sides but slightly worse on the left, she states she has had a lot of nasal drainage, postnasal drainage, and she is trying to use Sudafed and Flonase without results. Symptoms have been present for over a week. She denies sore throat, chest pain, cough, or any other complaints. She denies . She takes no daily medications otherwise. She denies recreational drugs, smoking, alcohol. - CONSTITUTIONAL Constitutional: DENIES: Fever, Chills - EENT EENT: DENIES: Sore Throat, Ear Pain, Eye problems - NEURO Neurology: REPORTS: Headache - sinus. DENIES: Weakness, Vision blurred, Dizzinesss / Vertigo - CARDIOVASCULAR Cardiovascular: DENIES: Chest pain - RESPIRATORY Respiratory: DENIES: Trouble Breathing, Coughing - GASTROINTESTINAL Gastrointestinal: DENIES: Abdominal Pain, Black / Bloody Stools - REPRODUCTIVE Reproductive: DENIES: : Past Medical History - General Information source: Patient - Social History Smoking Status: Never Smoker Drug Abuse: None Lives with: Family Family History: Reviewed & Not Pertinent Patient has homicidal ideation: No Renal/ Medical History: Denies: Hx Peritoneal Dialysis Skin Medical History: Reports Hx Eczema Psychiatric Medical History: Reports: Hx Depression Past Surgical History: Reports: Hx Cholecystectomy, Hx Orthopedic Surgery - FB removed from 3rd finger - Immunizations Hx Diphtheria, Pertussis, Tetanus Vaccination: Yes Vertical Provider Document - CONSTITUTIONAL General Appearance: WD/WN, No Apparent Distress - INFECTION CONTROL TRAVEL OUTSIDE OF THE [place] IN LAST 30 DAYS: No - HEENT HEENT: Atraumatic, Normocephalic. negative: Normal ENT Exam - Tenderness over the maxillary sinuses, slightly worse on the left. Nasal congestion. Unremarkable oral pharyngeal exam, ear exam, eye exam. - NECK Neck: Normal Inspection - RESPIRATORY Respiratory: Breath Sounds Normal, No Respiratory Distress - CARDIOVASCULAR Cardiovascular: Regular Rate, Regular Rhythm - GI/ABDOMEN Gastrointestinal: Abdomen Soft, Abdomen Non-Tender. negative: Abdomen Tender - BACK Back: negative: Normal Inspection - Tenderness noted in both paracervical areas, especially on the right, there appears to be a significant muscle spasm extending from the right paracervical area to the right trapezius area. Range of motion laterally of the neck is painful but intact. No nuchal rigidity. Unremarkable back exam otherwise. No saddle anesthesia, normal strength and distal neurovascular exam in all extremities - MUSCULOSKELETAL/EXTREMETIES Musculoskeletal/Extremeties: MAEW, FROM, Non-Tender - NEURO Level of Consciousness: Awake, Alert, Appropriate Motor/Sensory: No Motor Deficit, No Sensory Deficit - DERM Integumentary: Warm, Dry, No Rash Course - Re-evaluation Re-evalutation: Patient does have significant tightness along the right paracervical muscles and trapezius muscles along with some on the left as well. She is describing what I suspect are tension headaches, neuro she is very well-appearing, no neurological deficits, no thunderclap headache, patient was diagnosed with tension headaches previously as well but is not doing well with the Fioricet because of her continued muscle tension. She has a lot of lifting and stress with her job. Very low suspicion of acute intracranial hemorrhage or other emergent pathology based on her benign evaluation and well appearance along with consistent exam. Patient also has tenderness over the sinuses which is been developing for over a week, she is requesting treatment for sinusitis because her usual [id number] methods are not working. Because of the tenderness and duration she will be treated for this as well. Provided with a work release, discussed expectations, recommendations, follow-up, and return precautions. Patient states understanding and agreement with plan. - Vital Signs Vital signs: Temp Pulse Resp BP Pulse Ox 98.6 F 81 16 113/67 99 09/09/19 23:40 09/09/19 21:42 09/09/19 21:42 09/09/19 21:42 09/09/19 21:42 Discharge - Discharge Clinical Impression: Upper back pain Sinusitis Qualifiers: Sinusitis location: unspecified location Chronicity: acute Recurrence: non- recurrent Qualified Code(s): J01.90 - Acute sinusitis, unspecified Headache Qualifiers: Headache type: unspecified Headache chronicity pattern: acute headache Intractability: not intractable Qualified Code(s): R51 - Headache Condition: Stable Disposition: HOME, SELF-CARE Additional Instructions: Your evaluation is very suggestive of tension headaches. We are trying to resolve the pain and spasm in your upper back and neck (paracervical and trapezius muscle specifically). I recommend that you apply heat to the area several times a day, do gentle stretches, take coof-opv-zwrlnvt anti- inflammatory such as ibuprofen, and take the diazepam as a muscle relaxer with the precautions. Symptoms should gradually resolve and this should reduce your headaches. Attempt to have better mechanics at work to reduce strain and spasm in your neck and upper back. In addition to this you appear to have a developing sinus infection, take the amoxicillin antibiotics as prescribed to completion. You can continue the Flonase and Sudafed. Follow-up with primary care for additional management. Return if you worsen including vomiting, fever, severe worsening pain, or any other concerning or worsening symptoms. Prescriptions: Amoxicillin Trihydrate [Amoxil 500 mg Capsule] 1,000 mg PO BID 7 Days #28 capsule Diazepam [Valium 5 mg Tablet] 5 mg PO TID PRN #12 tablet PRN Reason: Forms: Return to Work
[2019-09-10 00:38] VITALS: BP 112/81
[2019-09-10] MEDS: DIAZEPAM 5 MG TABLET PO ONE ×2 (00:51→00:55)
== END 2019-09-10 00:51 | disposition home or self-care (01) ==
LOC: ER 21:10
DX: J01.90 Acute sinusitis, unspecified (principal); M54.6 Pain in thoracic spine; R51 Headache
CPT/HCPCS: 99283

== ENCOUNTER 2019-11-01 03:29 | Emergency (ER) | payer OTHER ==
[2019-11-01] MEDS ORDERED: DEXAMETHASONE SOD PHOS INJ 10 MG/1 ML VIAL IM STA (05:05)
[2019-11-01] MEDS ORDERED: KETOROLAC TROMETHAMINE 60 MG/2 ML SDV IM ONE (05:06)
--- NOTE | 2019-11-01 05:12 | ER Document Report ---
ED General Pain - General Chief Complaint: Low Back Pain Stated Complaint: RIGHT FLANK PAIN Time Seen by Provider: 11/01/19 04:51 Mode of Arrival: Ambulatory Information source: Patient Notes: Patient is a 20-year-old female comes emergency room complaining of right hip pain. Patient states that she is seeing Dr. Verduzco who is sent her to a physical therapist who informed her that her hips are not aligned and that she has to do exercises to realign them. States that her was helping her to do so 2 nights ago and since that point time she has had right hip pain with radiation down the back right leg. Patient denies any loss of urine or stool. She denies loss of any sensation. 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 Patient states that she was given some Valium as muscle relaxers still has a few left but that does not seem to be working that was given to her by the ER back in September for similar presentation. She denies any other medical problems. TRAVEL OUTSIDE OF THE [place] IN LAST 30 DAYS: No - Related Data Allergies/Adverse Reactions: Sulfa (Sulfonamide Antibiotics) Allergy (Mild, Verified 09/09/19 22:21) Past Medical History - General Information source: Patient - Social History Smoking Status: Never Smoker Chew tobacco use (# tins/day): No Frequency of alcohol use: None Drug Abuse: None Family History: Reviewed & Not Pertinent Patient has homicidal ideation: No Renal/ Medical History: Denies: Hx Peritoneal Dialysis Skin Medical History: Reports Hx Eczema Psychiatric Medical History: Reports: Hx Depression Past Surgical History: Reports: Hx Cholecystectomy, Hx Orthopedic Surgery - FB removed from 3rd finger - Immunizations Hx Diphtheria, Pertussis, Tetanus Vaccination: Yes Review of Systems - Review of Systems Constitutional: No symptoms reported EENT: No symptoms reported Cardiovascular: No symptoms reported Respiratory: No symptoms reported Gastrointestinal: No symptoms reported Genitourinary: No symptoms reported Female Genitourinary: No symptoms reported Musculoskeletal: See HPI, Back pain, Muscle pain Skin: No symptoms reported Hematologic/Lymphatic: No symptoms reported Neurological/Psychological: See HPI. denies: Sensory change, Loss of power, Paralysis, Numbness, Tingling -: Yes All other systems reviewed and negative Physical Exam - Vital signs Vitals: Temp Pulse Resp BP Pulse Ox 98.3 F 85 15 124/86 H 98 11/01/19 03:39 11/01/19 03:39 11/01/19 03:39 11/01/19 03:39 11/01/19 03:39 Interpretation: Normal - Notes Notes: PHYSICAL EXAMINATION: GENERAL: Patient is well-nourished well-developed 23-year-old female no apparent distress on physical exam this morning. She does appear somewhat uncomfortable. HEAD: Atraumatic, normocephalic. EYES: Pupils equal round and reactive to light, extraocular movements intact, conjunctiva are normal. ENT: Nares patent, oropharynx clear without exudates. Moist mucous membranes. NECK: Normal range of motion, supple without lymphadenopathy LUNGS: Breath sounds clear to auscultation bilaterally and equal. No wheezes rales or rhonchi. HEART: Regular rate and rhythm without murmurs ABDOMEN: Soft, nontender, nondistended abdomen. No guarding, no rebound. No masses appreciated. Female : deferred Musculoskeletal: Examination patient's area concern is her right hip. Patient has some reproducible tenderness at her sciatic notch area to deep palpation. She has no real just comfort or tenderness to palpation around the lumbar spine area. No spasms are felt in that area. Patient displays good DTRs in bilateral lower extremities. She also displays good strength against resistance with bilateral lower extremities. This is in all directions in all planes. Straight leg raises are negative. Patient has good sensation from her inner ankles to her groin as she does from her outer ankles to her hips. And again patient has good strength against resistance. No sign of any cauda equina type symptoms or process. Notes saddle paresthesia as well. NEUROLOGICAL: Normal speech, normal gait. Normal sensory, motor exams PSYCH: Normal mood, normal affect. SKIN: Warm, Dry, normal turgor, no rashes or lesions noted. Course - Re-evaluation Re-evalutation: 11/01/19 05:11 Given that this is an exacerbation of a chronic problem really feel this is more of a sciatica presentation. Since patient has no signs or symptoms of cauda equina syndrome or saddle paresthesia I am going to go ahead and treat her with a steroid taper and she will follow-up with Dr. Verduzco. Also going to give her Robaxin instead of the Valium. I am informed patient that this been going on since before the COVID 19 pandemic and physical therapy is not doing exactly what needs to be done so she needs to follow-up with Dr. Verduzco for reevaluation and possible MRI outpatient. - Vital Signs Vital signs: Temp Pulse Resp BP Pulse Ox 98.3 F 85 15 124/86 H 98 11/01/19 03:51 11/01/19 03:39 11/01/19 03:39 11/01/19 03:39 11/01/19 03:39 Discharge - Discharge Clinical Impression: Sciatica Qualifiers: Laterality: right Qualified Code(s): M54.31 - Sciatica, right side Condition: Stable Disposition: HOME, SELF-CARE Instructions: Ice Packs ([facility]), Low Back Pain ([facility]), Muscle Strain ([facility]), Pain Medication Injection ([facility]), Warm Packs ([facility]), Sciatica ([facility]) Additional Instructions: Home and rest. Medication as prescribed. As we discussed I would ice down when you get home from work at night with light stretching prior to doing that and moist heat before going to work. I would also try to avoid lifting as much as possible for the next few days. Take the medication as prescribed. As we also discussed contact Dr. Verduzco for follow-up and reevaluation and possible MRI outpatient. Should you have any loss of urine or stool have inability to walk or drag her feet return to ER for reevaluation. Prescriptions: Methylprednisolone [Medrol Dosepack (4 mg/Tab) 21 Tab/Dosepak] 4 mg PO ASDIR PRN #21 tab.ds.pk PRN Reason: Methocarbamol [Robaxin 500 mg Tablet] 500 mg PO TID PRN #21 tablet PRN Reason: Forms: Return to Work, Special Work Note Referrals: CHRIS VERDUZCO MD [ACTIVE STAFF] - Follow up as needed
[2019-11-01 05:33] VITALS: BP 122/62
== END 2019-11-01 05:33 | disposition home or self-care (01) ==
LOC: ER 03:29
DX: M54.31 Sciatica, right side (principal); M25.551 Pain in right hip; M54.9 Dorsalgia, unspecified; M79.10 Myalgia, unspecified site; Z88.2 Allergy status to sulfonamides
CPT/HCPCS: 99284; 96372; J1885; J1100

== ENCOUNTER 2019-12-21 13:21 | Emergency (ER) | payer SELFPAY ==
[2019-12-21] MEDS ORDERED: NORMAL SALINE 1000 ML 1,000 ML IV ONE (13:39)
[2019-12-21] MEDS ORDERED: ONDANSETRON HCL INJ/PF 4 MG/2 ML SDV IV ONE (13:39)
--- NOTE | 2019-12-21 13:40 | ER Document Report ---
ED Medical Screen (RME) - General Chief Complaint: Headache Stated Complaint: NAUSEA,NECK PAIN,HEADACHE Time Seen by Provider: 12/21/19 13:32 Notes: Patient is a 24-year-old female who presents emergency department with a chief complaint of nausea and headache. Patient states that she also has neck pain. Patient reports generalized body pain. Patient states she works at [employer]. Denies any contact with anybody who is tested positive for COVID-19. Exam: Alert and oriented. Agrees to get tested for COVID-19. I have greeted and performed a rapid initial assessment of this patient. A comprehensive ED assessment and evaluation of the patient, analysis of test results and completion of medical decision making process will be conducted by an additional ED providers. TRAVEL OUTSIDE OF THE [place] IN LAST 30 DAYS: No - Related Data Allergies/Adverse Reactions: Sulfa (Sulfonamide Antibiotics) Allergy (Mild, Verified 09/09/19 22:21) Past Medical History - Social History Family history: Reviewed & Not Pertinent Renal/ Medical History: Denies: Hx Peritoneal Dialysis Skin Medical History: Reports Hx Eczema Psychiatric Medical History: Reports: Hx Depression Past Surgical History: Reports: Hx Cholecystectomy, Hx Orthopedic Surgery - FB removed from 3rd finger - Immunizations Hx Diphtheria, Pertussis, Tetanus Vaccination: Yes Physical Exam - Vital signs Vitals: Temp Pulse Resp BP Pulse Ox 98.4 F 84 18 130/84 H 99 12/21/19 13:34 12/21/19 13:34 12/21/19 13:34 12/21/19 13:34 12/21/19 13:34 Course - Vital Signs Vital signs: Temp Pulse Resp BP Pulse Ox 98.4 F 84 18 130/84 H 99 12/21/19 13:34 12/21/19 13:34 12/21/19 13:34 12/21/19 13:34 12/21/19 13:34
[2019-12-21 14:01] LABS: AMORPHOUS SEDIMENT,URINE TRACE /HPF; APPEARANCE,URINE SLIGHTLY-CLOUDY; BILIRUBIN,URINE NEGATIVE (NEGATIVE); COLOR,URINE YELLOW; GLUCOSE, URINE NEGATIVE (NEGATIVE); KETONES,URINE NEGATIVE (NEGATIVE); LEUKOCYTE ESTERASE,URINE NEGATIVE (NEGATIVE); NITRITE,URINE NEGATIVE (NEGATIVE); PROTEIN,URINE NEGATIVE (NEGATIVE); URINE SPECIFIC GRAVITY 1.024; UROBILINOGEN,URINE NEGATIVE mg/dL (<2.0)
[2019-12-21 14:20] LABS: ABSOLUTE EOSINOPHILS # (AUTO) 0.2 10^3/uL (0.0-0.6); ABSOLUTE LYMPHOCYTES (AUTO) 1.7 10^3/uL (0.5-4.7); ABSOLUTE MONOCYTES (AUTO) 0.4 10^3/uL (0.1-1.4); ABSOLUTE NEUT (AUTO) 2.7 10^3/uL (1.7-8.2); BASOPHILS % (AUTO) 0.6 % (0-2); EOSINOPHILS % (AUTO) 4.2 % (0-6); HEMATOCRIT 37.6 % (36.0-47.0); HEMOGLOBIN 12.7 g/dL (12.0-15.5); LYMPHOCYTES % (AUTO) 33.7 % (13-45); MEAN CORPUSCULAR HEMOGLOBIN 27.3 pg (27.0-33.4); MEAN CORPUSCULAR HGB CONC 33.8 g/dL (32.0-36.0); MEAN CORPUSCULAR VOLUME 81 fl (80-97); MONOCYTES % (AUTO) 8.5 % (3-13); PLATELET COUNT 311 10^3/uL (150-450); RED BLOOD COUNT 4.66 10^6/uL (3.72-5.28); RED CELL DISTRIBUTION WIDTH 15.4 % (11.5-14.0); TOTAL CELLS COUNTED % (AUTO) 100 %; WHITE BLOOD COUNT 5.1 10^3/uL (4.0-10.5)
--- NOTE | 2019-12-21 14:21 | ER Document Report ---
Entered by SHARIFA PLATA SCRIBE 12/21/19 1421 Acting as scribe for:LIV SAGE MD ED Headache - General Chief Complaint: Headache Stated Complaint: NAUSEA,NECK PAIN,HEADACHE Time Seen by Provider: 12/21/19 13:32 Mode of Arrival: Ambulatory Information source: Patient Notes: This 24 year old female patient presents to the ED today with complaints of headache and muscle aches that started yesterday while at work. Patient also reports neck pain. She states that she has been taking OTC Tylenol without relief. Denies fever, chills, nausea, vomiting, or loss of taste/smell. She mentions chronic diarrhea related to prior cholecystectomy. She denies any known COVID exposure, but states that she works at [employer]. TRAVEL OUTSIDE OF THE [place] IN LAST 30 DAYS: No - Related Data Allergies/Adverse Reactions: Sulfa (Sulfonamide Antibiotics) Allergy (Mild, Verified 12/21/19 13:42) Home Medications: Zyrtec Past Medical History - General Information source: Patient - Social History Smoking Status: Never Smoker Cigarette use (# per day): No Chew tobacco use (# tins/day): No Smoking Education Provided: No Frequency of alcohol use: None Drug Abuse: None Family History: Reviewed & Not Pertinent Patient has suicidal ideation: No Patient has homicidal ideation: No Skin Medical History: Reports Hx Eczema Psychiatric Medical History: Reports: Hx Depression Past Surgical History: Reports: Hx Cholecystectomy, Hx Orthopedic Surgery - FB removed from 3rd finger - Immunizations Hx Diphtheria, Pertussis, Tetanus Vaccination: Yes Review of Systems - Review of Systems Constitutional: See HPI. denies: Chills, Fever EENT: No symptoms reported Cardiovascular: No symptoms reported Respiratory: No symptoms reported Gastrointestinal: See HPI, Diarrhea - chronic, Nausea. denies: Vomiting Genitourinary: No symptoms reported Female Genitourinary: No symptoms reported Musculoskeletal: See HPI, Muscle pain, Neck pain Skin: No symptoms reported Hematologic/Lymphatic: No symptoms reported Neurological/Psychological: See HPI, Headaches -: Yes All other systems reviewed and negative Physical Exam - Vital signs Vitals: Temp Pulse Resp BP Pulse Ox 98.4 F 84 18 130/84 H 99 12/21/19 13:34 12/21/19 13:34 12/21/19 13:34 12/21/19 13:34 12/21/19 13:34 - General General appearance: Appears well - Nontoxic appearance, Alert In distress: None - HEENT Head: Normocephalic, Atraumatic Eyes: Normal Extraocular movements intact: Yes Pupils: PERRL Pharynx: Normal. No: Erythema Neck: Normal, Supple. No: Other - Nuchal rigidity - Respiratory Respiratory status: No respiratory distress Chest status: Nontender Breath sounds: Normal Chest palpation: Normal - Cardiovascular Rhythm: Regular Heart sounds: Normal auscultation, S1 appreciated, S2 appreciated Murmur: No Friction rub: No Gallop: None auscultated - Abdominal Inspection: Normal Distension: No distension Bowel sounds: Normal Tenderness: Nontender - Abdomen soft Organomegaly: No organomegaly - Back Back: Normal, Nontender - Extremities General upper extremity: Normal inspection General lower extremity: Normal inspection. No: Edema - Neurological Neuro grossly intact: Yes Orientation: AAOx4 Sheridan Coma Scale Eye Opening: Spontaneous Azalea Coma Scale Verbal: Oriented Azalea Coma Scale Motor: Obeys Commands Azalea Coma Scale Total: 15 - Psychological Associated symptoms: Normal affect, Normal mood - Skin Skin Temperature: Warm Skin Moisture: Dry Skin Color: Normal Skin irregularity: negative: Rash Course - Re-evaluation Re-evalutation: 12/21/19 15:24 Patient is resting comfortably not showing signs of distress. States her muscle ache neck pain headache has improved. - Vital Signs Vital signs: Temp Pulse Resp BP Pulse Ox 98.4 F 84 18 130/84 H 99 12/21/19 13:34 12/21/19 13:34 12/21/19 13:34 12/21/19 13:34 12/21/19 13:34 12/21/19 15:24 Vital signs stable. - Laboratory Result Diagrams: 12/21/19 13:55 12/21/19 13:55 Laboratory results interpreted by me: 12/21/19 12/21/19 13:45 13:55 RDW 15.4 H Urine Ascorbic Acid 40 H 12/21/19 15:24 Laboratories essentially unremarkable. Discharge - Discharge Clinical Impression: Viral syndrome, Muscle ache, Suspected COVID-19 virus infection Condition: Stable Disposition: HOME, SELF-CARE Instructions: Viral Syndrome ([facility]), Acetaminophen, COVID-19 Guidance for Persons Under Investigation I personally performed the services described in the documentation, reviewed and edited the documentation which was dictated to the scribe in my presence, and it accurately records my words and actions.
[2019-12-21 14:36] LABS: ALBUMIN 4.4 g/dL (3.5-5.0); ALKALINE PHOSPHATASE 81 U/L (38-126); ANION GAP 12 (5-19); ASPARTATE AMINO TRANSFERASE 25 U/L (14-36); BILIRUBIN,DIRECT 0.2 mg/dL (0.0-0.4); BILIRUBIN,TOTAL 0.8 mg/dL (0.2-1.3); BLOOD UREA NITROGEN 13 mg/dL (7-20); CALCIUM 9.7 mg/dL (8.4-10.2); CARBON DIOXIDE 24 mmol/L (22-30); CHLORIDE 104 mmol/L (98-107); GLUCOSE 89 mg/dL (75-110); POTASSIUM 4.2 mmol/L (3.6-5.0); TOTAL PROTEIN 7.7 g/dL (6.3-8.2)
[2019-12-21 14:40] LABS: A TYPE INFLUENZA AG NEGATIVE (NEGATIVE); B INFLUENZA AG NEGATIVE (NEGATIVE)
[2019-12-21 16:23] VITALS: BP 123/80
== END 2019-12-21 16:23 | disposition home or self-care (01) ==
LOC: ER 13:21
DX: M79.10 Myalgia, unspecified site (principal); B34.9 Viral infection, unspecified; R51.9 Headache, unspecified; R11.0 Nausea; Z20.828 Contact with and (suspected) exposure to other viral communicable diseases; M54.2 Cervicalgia; Z88.2 Allergy status to sulfonamides; Z90.49 Acquired absence of other specified parts of digestive tract
CPT/HCPCS: 99284; 96361; 96374; 36415; 87070; 87880; 83690; 85025; 87635; 81025; 80053; 81001; 87804; J2405; J7030; C9803

== ENCOUNTER 2020-03-20 09:34 | Emergency (ER) | payer OTHER, SELFPAY ==
--- NOTE | 2020-03-20 10:03 | ER Document Report ---
ED General - General Chief Complaint: Nausea Stated Complaint: DIZZINESS,NAUSEA,SHORT OF BREATH Time Seen by Provider: 03/20/20 10:02 Primary Care Provider: CHRIS VERDUZCO MD [Primary Care Provider] - Follow up as needed TRAVEL OUTSIDE OF THE [place] 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 Patient states this started around 530 this morning. Patient does endorse seasonal allergies, she does take Benadryl periodically. She reports she did eat breakfast this morning and has been drinking some water. Patient reports she has had episodes of dizziness in the past but what brought her to the emergency room is that she started having weakness along with it. [employer] does have a current outbreak of Covid, she states her rapid C ovid test yesterday was negative, she has not had a PCR. LMP 03/16/20. No [id number] medications have been tried denies fevers, chills, chest pain,palpitations, shortness of breath, dyspnea, vomiting, diarrhea, abdominal pain, hematuria,blurred vision, double vision, loss of vision, speech changes, syncope, headaches, wheezing, ST, URI, neck pain, bowel or bladder dysfunction, saddle anesthesia, numbness or tingling in bilateral upper or lower extremities equally, muscle paralysis, weakness in bilateral upper or lower extremities equally or rash. Denies IV drug use. - Related Data Allergies/Adverse Reactions: Sulfa (Sulfonamide Antibiotics) Allergy (Mild, Verified 12/21/19 13:42) Past Medical History - General Information source: Patient - Social History Smoking Status: Unknown if Ever Smoked Family History: Reviewed & Not Pertinent Renal/ Medical History: Denies: Hx Peritoneal Dialysis Skin Medical History: Reports Hx Eczema Psychiatric Medical History: Reports: Hx Depression Past Surgical History: Reports: Hx Cholecystectomy, Hx Orthopedic Surgery - FB removed from 3rd finger - Immunizations Hx Diphtheria, Pertussis, Tetanus Vaccination: Yes Review of Systems - Review of Systems Constitutional: See HPI EENT: No symptoms reported Cardiovascular: No symptoms reported Respiratory: No symptoms reported Gastrointestinal: Nausea Genitourinary: No symptoms reported Female Genitourinary: No symptoms reported Musculoskeletal: No symptoms reported Skin: No symptoms reported Hematologic/Lymphatic: No symptoms reported Neurological/Psychological: No symptoms reported Physical Exam - Vital signs Vitals: Temp Pulse Resp BP Pulse Ox 98.3 F 85 18 119/77 97 03/20/20 09:50 03/20/20 09:50 03/20/20 09:50 03/20/20 09:50 03/20/20 09:50 - Notes Notes: MEDICATIONS: I agree with the patient medications as charted by the RN. ALLERGIES: I agree with the allergies as charted by the RN. PAST MEDICAL HISTORY/PAST SURGICAL HISTORY: Reviewed and agree as charted by RN. SOCIAL HISTORY: Reviewed and agree as charted by RN. FAMILY HISTORY: No significant familial comorbid conditions directly related to patient complaint EXAM: Reviewed vital signs as charted by RN. PHYSICAL EXAMINATION: reviewed vital signs by RN GENERAL: Well-appearing, well-nourished and in no acute distress. HEAD: Atraumatic, normocephalic. EYES: Pupils equal round and reactive to light, extraocular movements intact, conjunctiva are normal. ENT: Bilateral TMs with serous effusion, light reflex positive. TMs intact without rupture, no erythema bilaterally. Boggy turbinates bilaterally, oropharynx clear without exudates. Moist mucous membranes. NECK: Normal range of motion, supple without lymphadenopathy LUNGS: Breath sounds clear to auscultation bilaterally and equal. No wheezes rales or rhonchi. HEART: Regular rate and rhythm without murmurs ABDOMEN: Soft, nontender, nondistended abdomen. No guarding, no rebound. No masses appreciated. Female : deferred Musculoskeletal: Normal range of motion, no pitting or edema. No cyanosis. NEUROLOGICAL: Cranial nerves grossly intact. Normal speech, normal gait. No rmal sensory, motor exams PSYCH: Normal mood, normal affect. SKIN: Warm, Dry, normal turgor, no rashes or lesions noted. Course - Re-evaluation Re-evalutation: 03/20/20 10:43 Afebrile, vital stable no distress. Nurses notes reviewed. CBC negative for leukocytosis or anemia, CMP negative for hepatic or renal dysfunction, no el ectrolyte disturbances. Serum hCG negative. EKG negative for acute STEMI, no ST segment changes. Chest x-ray unremarkable. Urinalysis unremarkable as well. Orthostatic vital signs within normal range, no hypotensive readings with standing sitting or lying. Covid test is pending. Discussed with patient that she does need to self quarantine at home until results are known, wear mask, social distance and wash hands frequently. 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 She states that she did have a rapid test done yesterday however these are inconclusive if she has had Covid exposure within the last 72 hours as a viral load has not mounted enough to detect on a rapid test. Discussed with patient that her work- up today was benign. And I do encourage her to increase oral hydration, eat small frequent meals throughout the day, make sure she is getting adequate nutrition and she does need to stay home. After performing a Medical Screening Examination, I estimate there is LOW risk for ACUTE CORONARY SYNDROME, PULMONARY EMBOLI, RESPIRATORY FAILURE, SEPSIS OR MENINGITIS, thus I consider the discharge disposition reasonable. I have reevaluated this patient multiple times and no significant life threatening changes are noted. The patient and I have discussed the diagnosis and risks, and we agree with discharging home with close follow-up . We also discussed returning to the Emergency Department immediately if new or worsening symptoms occur. We have discussed the symptoms which are most concerning (e.g., changing or worsening pain, trouble swallowing or breathing, neck stiffness, fever) that necessitate immediate return.The patient was evaluated during a global COVID-19 pandemic and that diagnosis was suspected/considered upon their initial presentation. Their evaluation, treatment and testing was consistent with current guidelines for patients who present with complaints or symptoms and may be related to COVID-19. 03/20/20 18:52 - Vital Signs Vital signs: Temp Pulse Resp BP Pulse Ox 98.3 F 80 18 120/73 100 03/20/20 09:50 03/20/20 14:15 03/20/20 14:15 03/20/20 14:15 03/20/20 14:15 - Laboratory Results Result Diagrams: 03/20/20 11:13 03/20/20 11:13 Laboratory Results Interpreted: 03/20/20 03/20/20 03/20/20 10:06 11:13 11:13 RDW 15.5 H Eos % (Auto) 7.3 H Sodium 136.3 L Urine Protein 30 H Critical Laboratory Results Reviewed: No Critical Results - Radiology Results Critical Radiology Results Reviewed: No Critical Results Discharge - Discharge Clinical Impression: Person under investigation for COVID-19, Weakness Condition: Stable Disposition: HOME, SELF-CARE Instructions: COVID-19 Guidance for Persons Under Investigation, Antinausea M edication ([facility]), Dizziness ([facility]), Meclizine ([facility]) Additional Instructions: All of your lab work today was normal as well as your chest x-ray and your EKG. You are advised to quarantine at home until you get the results of your Covid test. Please social distance, wear your mask and wash your hands frequently. Work note has been provided. I did prescribe Zofran to your pharmacy, please take as needed every 4-6 hours as needed for nausea. Please follow-up with your primary care provider in the next 24 to 48 hours. Return immediately for any new or worsening symptoms. Follow up with primary care provider, call tomorrow to make followup appointment. Prescriptions: Ondansetron [Zofran Odt 4 mg Tablet] 1 - 2 tab PO Q4H PRN #15 tab.rapdis PRN Reason: For Nausea/Vomiting Forms: Return to Work Referrals: CHRIS VERDUZCO MD [Primary Care Provider] - Follow up as needed
[2020-03-20 10:44] LABS: APPEARANCE,URINE CLOUDY; BILIRUBIN,URINE NEGATIVE (NEGATIVE); COLOR,URINE YELLOW; GLUCOSE, URINE NEGATIVE (NEGATIVE); KETONES,URINE NEGATIVE (NEGATIVE); LEUKOCYTE ESTERASE,URINE NEGATIVE (NEGATIVE); NITRITE,URINE NEGATIVE (NEGATIVE); PROTEIN,URINE 30 mg/dL (NEGATIVE); URINE SPECIFIC GRAVITY 1.029; UROBILINOGEN,URINE NEGATIVE mg/dL (<2.0)
--- NOTE | 2020-03-20 11:39 | EKG REPORT ---
SEVERITY:- NORMAL ECG - SINUS RHYTHM : Confirmed by: Janet Quesada MD 20-Mar-2020 11:38:29
--- NOTE | 2020-03-20 11:51 | RADIOLOGY REPORT (SQ) ---
EXAM DESCRIPTION: CHEST SINGLE VIEW IMAGES COMPLETED DATE/TIME: 03/20/2020 11:06 am REASON FOR STUDY: weakness/dizziness COMPARISON: None. EXAM PARAMETERS: NUMBER OF VIEWS: One view. TECHNIQUE: Single frontal radiographic view of the chest acquired. RADIATION DOSE: NA LIMITATIONS: None. FINDINGS: LUNGS AND PLEURA: No opacities, masses or pneumothorax. No pleural effusion. MEDIASTINUM AND HILAR STRUCTURES: No masses. Contour normal. HEART AND VASCULAR STRUCTURES: Heart normal in size. Normal vasculature. BONES: No acute findings. HARDWARE: None in the chest. OTHER: No other significant finding. IMPRESSION: NO ACUTE RADIOGRAPHIC FINDING IN THE CHEST. TECHNICAL DOCUMENTATION: JOB ID: [id number] 2010 [email or web address] Rights Reserved Reading location - IP/workstation name: [email or web address]
[2020-03-20 12:07] LABS: ABSOLUTE EOSINOPHILS # (AUTO) 0.3 10^3/uL (0.0-0.6); ABSOLUTE LYMPHOCYTES (AUTO) 1.3 10^3/uL (0.5-4.7); ABSOLUTE MONOCYTES (AUTO) 0.3 10^3/uL (0.1-1.4); ABSOLUTE NEUT (AUTO) 2.1 10^3/uL (1.7-8.2); EOSINOPHILS % (AUTO) 7.3 % (0-6); HEMATOCRIT 36.4 % (36.0-47.0); HEMOGLOBIN 12.3 g/dL (12.0-15.5); LYMPHOCYTES % (AUTO) 31.6 % (13-45); MEAN CORPUSCULAR HGB CONC 33.9 g/dL (32.0-36.0); MEAN CORPUSCULAR VOLUME 80 fl (80-97); MONOCYTES % (AUTO) 8.4 % (3-13); PLATELET COUNT 250 10^3/uL (150-450); RED BLOOD COUNT 4.58 10^6/uL (3.72-5.28); RED CELL DISTRIBUTION WIDTH 15.5 % (11.5-14.0); SEGMENTED NEUTROPHILS % (AUTO) 51.7 % (42-78); TOTAL CELLS COUNTED % (AUTO) 100 %; WHITE BLOOD COUNT 4.1 10^3/uL (4.0-10.5)
[2020-03-20 12:28] LABS: ALBUMIN 4.2 g/dL (3.5-5.0); ALKALINE PHOSPHATASE 99 U/L (38-126); ANION GAP 5 (5-19); ASPARTATE AMINO TRANSFERASE 25 U/L (14-36); BILIRUBIN,DIRECT 0.1 mg/dL (0.0-0.4); BILIRUBIN,TOTAL 0.7 mg/dL (0.2-1.3); BLOOD UREA NITROGEN 13 mg/dL (7-20); CALCIUM 9.4 mg/dL (8.4-10.2); CARBON DIOXIDE 26 mmol/L (22-30); CHLORIDE 105 mmol/L (98-107); GLUCOSE 82 mg/dL (75-110); POTASSIUM 4.3 mmol/L (3.6-5.0); TOTAL PROTEIN 7.6 g/dL (6.3-8.2)
[2020-03-20 14:20] VITALS: BP 120/73
== END 2020-03-20 14:15 | disposition home or self-care (01) ==
LOC: ER 09:34
DX: R11.0 Nausea (principal); R42 Dizziness and giddiness; R06.02 Shortness of breath; R53.1 Weakness; Z20.822 Contact with and (suspected) exposure to COVID-19; Z90.49 Acquired absence of other specified parts of digestive tract
CPT/HCPCS: 93005; 99285; 36415; 84702; 85025; 87635; 80053; 81001; 71045; 93010; C9803